=== PATIENT | female | born 1960 | race American Indian/Alaskan Native ===

== ENCOUNTER 2018-03-15 04:37 | Emergency (ER) | payer OTHER ==
[2018-03-15 04:51] VITALS: BP 157/92
--- NOTE | 2018-03-15 07:27 | XRay Report ---
FINAL REPORT PROCEDURE: XRAY FOOT COMPLETE LEFT TECHNIQUE: Left foot radiographs, AP, lateral, and oblique views. CPT 49846 HISTORY: left foot and lower leg pain COMPARISON: No prior studies are available for comparison. FINDINGS: Fracture (s) and/or Dislocation(s): None . Alignment: Normal . Joint space(s): There is mild degenerative arthrosis of the 1st metatarsophalangeal joint and 1st interphalangeal joint.. Soft tissues: There is generalized soft tissue swelling.. Bone mineralization: There is generalized osteopenia.. Foreign bodies: None . Calcaneal spurring: There are small calcaneal spurs.. IMPRESSION: There is no fracture or malalignment.
[2018-03-15] MEDS ORDERED: TYLENOL PO ONE (08:29)
--- NOTE | 2018-03-15 08:31 | Emergency Department Report ---
ED Lower Extremity HPI - General Chief Complaint: Extremity Injury, Lower Stated Complaint: BROKEN TOE Time Seen by Provider: 03/15/18 08:19 Source: patient Mode of arrival: Ambulatory Limitations: No Limitations - History of Present Illness Initial Comments: This is a 57-year-old female nontoxic, well nourished in appearance, no acute signs of distress presents to the ED with c/o of left great toe pain 1 day. Patient stated that she hit her toe against the shower last night. Patient denies any other trauma. Patient denies any numbness, tingling, fever, chills, nausea, vomiting, chest pain, shortness of breath, headache, stiff neck. Patient denies any joint swelling or joint redness. Patient denies decreased range of motion. Patient stated has decreased gait due to pain. MD Complaint: foot injury -: Last night Injury: Toes: Left Type of Injury: blunt Place: home Severity: mild Severity scale (0 -10): 8 Improves With: immobilization Worsens With: weight bearing, movement, palpation Associated Symptoms: able to partially bear weight, ambulatory. denies: snap/ pop sensation, swelling, numbness, tingling, unable to bear weight - Related Data Previous Rx's Medication Instructions Recorded Last Taken Type Azithromycin [Zithromax Z-BORIS] 1 dose PO DAILY 5 Days tab 05/25/17 Unknown Rx Benzonatate [Tessalon Perles] 100 mg PO Q8HR #30 capsule 05/25/17 Unknown Rx Ondansetron [Zofran Odt] 4 mg PO Q8HR #20 tab.rapdis 05/25/17 Unknown Rx Acetaminophen/Codeine [Tylenol 1 tab PO Q6H PRN #12 tab 03/15/18 Unknown Rx /Codeine # 3 tab] Allergies Allergy/AdvReac Type Severity Reaction Status Date / Time metronidazole [From Flagyl] Allergy Hives Verified 03/15/18 06:35 naproxen Allergy Hives Verified 05/25/17 18:55 Sulfa (Sulfonamide AdvReac Nausea Verified 05/25/17 18:55 Antibiotics) ED Review of Systems ROS: Stated complaint: BROKEN TOE Other details as noted in HPI Constitutional: denies: chills, fever Eyes: denies: eye pain, eye discharge, vision change ENT: denies: ear pain, throat pain Respiratory: denies: cough, shortness of breath, wheezing Cardiovascular: denies: chest pain, palpitations Endocrine: no symptoms reported Gastrointestinal: denies: abdominal pain, nausea, diarrhea Genitourinary: denies: urgency, dysuria, discharge Musculoskeletal: denies: back pain, joint swelling, arthralgia Skin: denies: rash, lesions Neurological: denies: headache, weakness, paresthesias Psychiatric: denies: anxiety, depression Hematological/Lymphatic: denies: easy bleeding, easy bruising ED Past Medical Hx - Past Medical History Hx Hypertension: Yes Hx Arthritis: Yes Additional medical history: LUPUS - Surgical History Additional Surgical History: Hx of back surgeries. Hysterectomy - Social History Smoking Status: Never Smoker Substance Use Type: None - Medications Home Medications: Home Medications Medication Instructions Recorded Confirmed Last Taken Type Azithromycin [Zithromax Z-BORIS] 1 dose PO DAILY 5 Days tab 05/25/17 Unknown Rx Benzonatate [Tessalon Perles] 100 mg PO Q8HR #30 capsule 05/25/17 Unknown Rx Ondansetron [Zofran Odt] 4 mg PO Q8HR #20 tab.rapdis 05/25/17 Unknown Rx Acetaminophen/Codeine [Tylenol 1 tab PO Q6H PRN #12 tab 03/15/18 Unknown Rx /Codeine # 3 tab] ED Physical Exam - General Limitations: No Limitations General appearance: alert, in no apparent distress - Head Head exam: Present: atraumatic, normocephalic - Eye Eye exam: Present: normal appearance - ENT ENT exam: Present: mucous membranes moist - Neck Neck exam: Present: normal inspection - Respiratory Respiratory exam: Present: normal lung sounds bilaterally. Absent: respiratory distress - Cardiovascular Cardiovascular Exam: Present: regular rate, normal rhythm. Absent: systolic murmur, diastolic murmur, rubs, gallop - GI/Abdominal GI/Abdominal exam: Present: soft, normal bowel sounds - Extremities Exam Extremities exam: Present: normal inspection, full ROM, tenderness, normal capillary refill. Absent: joint swelling - Expanded Lower Extremity Exam Left Hip exam: Present: normal inspection, full ROM. Absent: tenderness, swelling Upper Leg exam: Present: normal inspection, full ROM. Absent: tenderness, swelling Knee exam: Present: normal inspection, full ROM. Absent: tenderness, swelling Lower Leg exam: Present: normal inspection, full ROM. Absent: tenderness, swelling Ankle exam: Present: normal inspection, full ROM. Absent: tenderness, swelling , abrasion, laceration, ecchymosis, deformity, crepidus, dislocation, erythema, anterior draw sign Foot/Toe exam: Present: normal inspection, full ROM, tenderness, swelling, ecchymosis. Absent: abrasion, laceration, deformity, crepidus, dislocation, erythema, puncture wound, foreign body, calcaneal tenderness, tenderness at base of 5th metatarsal, nail avulsion, subungual hematoma Neuro vascular tendon exam: Present: no vascular compromise. Absent: pulse deficit, abnormal cap refill, motor deficit, sensory deficit, tendon deficit, extremity cold to touch, pallor, abnormal 2-point discrimination, decreased fine /light touch, foot drop, peroneal nerve deficit, significant pain with passive ROM of distal joint Gait: Positive: observed and limited by pain 1 - pain here - Back Exam Back exam: Present: normal inspection, full ROM - Neurological Exam Neurological exam: Present: alert, oriented X3, normal gait - Psychiatric Psychiatric exam: Present: normal affect, normal mood - Skin Skin exam: Present: warm, dry, intact, normal color. Absent: rash ED Course Vital Signs 03/15/18 04:50 Temperature 98.1 F Pulse Rate 84 Respiratory 18 Rate Blood Pressure 157/92 O2 Sat by Pulse 97 Oximetry - Reevaluation(s) Reevaluation #1: 03/15/18 08:29 Patient is speaking in full sentences with no signs of distress noted. ED Lower Extremity MDM - Medical Decision Making This is a 57-year-old female that presents with left great toe strain. Patient is stable and was examined by me. I referred patient to an orthopedic doctor for further evaluation for repeat xrays. X-ray has been obtained and dictated by the radiologist. Patient is notified of the x-ray report with noted by the patient. Patient does have normal gait with no tenderness and no joint swelling. No ecchymosis. no joint redness or swelling. Not warm to touch. No signs of cellulites present. Patient was instructed to RICE therapy. Patient received Tylenol for pain. Patient is discharged with Tylenol. At time of discharge, the patient does not seem toxic or ill in appearance. No acute signs of distress noted. Patient agrees to discharge treatment plan of care. No further questions noted by the patient. Critical care attestation.: If time is entered above; I have spent that time in minutes in the direct care of this critically ill patient, excluding procedure time. ED Disposition Clinical Impression: Strain of great toe, left Qualifiers: Encounter type: initial encounter Qualified Code(s): S96.912A - Strain of unspecified muscle and tendon at ankle and foot level, left foot, initial encounter Disposition: TO HOME OR SELFCARE Is pt being admited?: No Does the pt Need Aspirin: No Condition: Stable Instructions: RICE Therapy (ED), Acetaminophen/Codeine (By mouth) Additional Instructions: Follow-up with a orthopedic doctor in 3-5 days or if symptoms worsen and continue return to emergency room as soon as possible. Do not operate any machinery while taking Tylenol with codeine as this may cause drowsiness. Prescriptions: Acetaminophen/Codeine [Tylenol /Codeine # 3 tab] 1 tab PO Q6H PRN #12 tab PRN Reason: Pain , Severe (7-10) Referrals: PRIMARY CARE, [Primary Care Provider] - 3-5 Days ROSAMARIA FLORES MD [Staff Physician] - 3-5 Days [facility] [Outside] - 3-5 Days [facility] [place]Outside] - 3-5 Days Forms: Work/School Release Form(ED)
== END 2018-03-15 08:56 | disposition home or self-care (01) ==
LOC: ED 04:37
DX: S96.912A Strain of unspecified muscle and tendon at ankle and foot level, left foot, initial encounter (principal); I10 Essential (primary) hypertension; M19.90 Unspecified osteoarthritis, unspecified site; Z90.710 Acquired absence of both cervix and uterus; Z88.2 Allergy status to sulfonamides; Z88.8 Allergy status to other drugs, medicaments and biological substances; W22.8XXA Striking against or struck by other objects, initial encounter; Y93.89 Activity, other specified; Y92.89 Other specified places as the place of occurrence of the external cause; Y99.8 Other external cause status
CPT/HCPCS: 99283